=== PATIENT | male | born 1985 | race American Indian/Alaskan Native ===

== ENCOUNTER 2022-01-02 01:07 | Emergency (ER) | payer SELFPAY ==
[2022-01-02] MEDS ORDERED: SODIUM CHLORIDE 0.9% 1000 ML 1,000 ML IV ONE (01:15)
[2022-01-02] MEDS ORDERED: levETIRAcetam 1000 MG/NS 0.75% 1,000 MG/100 ML BAG IV ONE (01:15)
[2022-01-02 01:45] LABS: Bilirubin,Urine NEG (Negative); Blood,Urine SM (Negative); Color,Urine Straw (Yellow); Protein,Urine <15 mg/dL mg/dL (Negative); Urobilinogen,Urine < 2.0 mg/dL (<2.0)
[2022-01-02 01:52] LABS: Amphetamine Screen,Urine PRESUMPTIVE NEGATIVE; Benzodiazepines Screen,Urine PRESUMPTIVE NEGATIVE; Cannabinoid Screen,Urine PRESUMPTIVE NEGATIVE; Cocaine Screen,Urine PRESUMPTIVE NEGATIVE; Methadone Screen,Urine PRESUMPTIVE NEGATIVE; Opiate Screen,Urine PRESUMPTIVE NEGATIVE
[2022-01-02 01:55] LABS: Basophils % (Auto) 0.8 % (0.0-1.8); Eosinophils # (Auto) 0.4 K/mm3 (0.0-0.4); Eosinophils % (Auto) 7.2 % (0.0-4.3); Hematocrit 38.1 % (35.5-45.6); Hemoglobin 12.7 gm/dl (11.8-15.2); Lymphocytes # (Auto) 1.2 K/mm3 (1.2-5.4); Lymphocytes % (Auto) 22.9 % (13.4-35.0); Mean Corpuscular HGB Conc 33 % (32-34); Mean Corpuscular Volume 84 fl (84-94); Monocytes # (Auto) 0.4 K/mm3 (0.0-0.8); Monocytes % (Auto) 7.3 % (0.0-7.3); Platelet Count 272 K/mm3 (140-440); Red Blood Count 4.51 M/mm3 (3.65-5.03); Red Cell Distribution Width 14.7 % (13.2-15.2)
[2022-01-02 02:02] LABS: Alanine Aminotransferase 30 units/L (7-56); Albumin 4.3 g/dL (3.9-5); BUN/Creatinine Ratio 14; Blood Urea Nitrogen 11 mg/dL (9-20); Calcium 8.7 mg/dL (8.4-10.2); Hemolysis Index 9
[2022-01-02 02:27] VITALS: BP 110/69
--- NOTE | 2022-01-02 03:21 | Emergency Department Report ---
ED Seizure HPI - General Chief Complaint: Seizure Stated Complaint: SEIZURE Time Seen by Provider: 01/02/22 01:15 Source: patient, EMS Mode of arrival: Stretcher Limitations: No Limitations - History of Present Illness MD Complaint: seizure -: Sudden, hour(s) Description of Episode: loss of consciousness, tonic-clonic movement Seizure History: known seizure disorder, history of non-compliance Possible Precipitating Event: none Associated Symptoms: denies: denies other symptoms, chest pain, confusion, cough - Related Data Previous Rx's Medication Instructions Recorded Last Taken Type levETIRAcetam [Keppra TAB] 1,000 mg PO BID #60 tab 01/02/22 Unknown Rx Allergies Allergy/AdvReac Type Severity Reaction Status Date / Time No Known Allergies Allergy Verified 01/02/22 01:46 ED Review of Systems ROS: Stated complaint: SEIZURE Other details as noted in HPI Constitutional: denies: chills, fever Eyes: denies: eye pain, eye discharge, vision change ENT: denies: ear pain, throat pain Respiratory: denies: cough, shortness of breath, wheezing Cardiovascular: denies: chest pain, palpitations Endocrine: no symptoms reported Gastrointestinal: denies: abdominal pain, nausea, diarrhea Genitourinary: denies: urgency, dysuria Musculoskeletal: denies: back pain, joint swelling, arthralgia Skin: denies: rash, lesions Neurological: denies: headache, weakness, paresthesias Psychiatric: denies: anxiety, depression Hematological/Lymphatic: denies: easy bleeding, easy bruising ED Past Medical Hx - Past Medical History Previous Medical History?: No Hx Hypertension: No Hx Seizures: Yes - Medications Home Medications: Home Medications Medication Instructions Recorded Confirmed Last Taken Type levETIRAcetam [Keppra TAB] 1,000 mg PO BID #60 tab 01/02/22 Unknown Rx ED Physical Exam - General Limitations: No Limitations General appearance: alert, in no apparent distress - Head Head exam: Present: atraumatic, normocephalic - Eye Eye exam: Present: normal appearance - ENT ENT exam: Present: mucous membranes moist - Neck Neck exam: Present: normal inspection - Respiratory Respiratory exam: Present: normal lung sounds bilaterally. Absent: respiratory distress - Cardiovascular Cardiovascular Exam: Present: regular rate, normal rhythm. Absent: systolic murmur, diastolic murmur, rubs, gallop - GI/Abdominal GI/Abdominal exam: Present: soft, normal bowel sounds - Rectal Rectal exam: Present: deferred - Extremities Exam Extremities exam: Present: normal inspection - Back Exam Back exam: Present: normal inspection - Neurological Exam Neurological exam: Present: alert, oriented X3 - Psychiatric Psychiatric exam: Present: normal affect, normal mood - Skin Skin exam: Present: warm, dry, intact, normal color. Absent: rash ED Course Vital Signs 01/02/22 01/02/22 01/02/22 01:23 01:45 01:48 Temperature 98.1 F Pulse Rate 91 H Respiratory 18 Rate Blood Pressure Blood Pressure 118/63 [Right] O2 Sat by Pulse 99 99 100 Oximetry 01/02/22 01/02/22 02:01 02:15 Temperature Pulse Rate Respiratory Rate Blood Pressure 110/69 110/69 Blood Pressure [Right] O2 Sat by Pulse 99 96 Oximetry ED Medical Decision Making - Lab Data Result diagrams: 01/02/22 01:25 01/02/22 01:25 - Medical Decision Making work up neg , vss, awake and alert , refilled for keppra , loaded with keppra Critical care attestation.: If time is entered above; I have spent that time in minutes in the direct care of this critically ill patient, excluding procedure time. ED Disposition Clinical Impression: Seizure Disposition: 01 HOME / SELF CARE / HOMELESS Is pt being admited?: No Does the pt Need Aspirin: No Condition: Stable Instructions: Epilepsy
== END 2022-01-02 04:12 | disposition home or self-care (01) ==
LOC: ED 01:07
DX: G40.909 Epilepsy, unspecified, not intractable, without status epilepticus (principal)
CPT/HCPCS: 36415; 80053; 80307; 81001; 85025; 96374; 99284; J1953; J7030; 80320; G0480

== ENCOUNTER 2022-02-03 22:45 | Emergency (ER) | payer SELFPAY ==
[2022-02-04] MEDS ORDERED: levETIRAcetam 500 MG TAB PO ONE (08:29)
[2022-02-04 08:49] VITALS: BP 123/76
--- NOTE | 2022-02-04 08:50 | Emergency Department Report ---
ED Seizure HPI - General Chief Complaint: Seizure Stated Complaint: SEIZURE Source: patient Mode of arrival: Ambulatory Limitations: No Limitations - History of Present Illness Initial Comments: 36 y/o male present to Ed questing refill for seizure medication. Patient states that he is visiting from out of his Medication of Keppra. Patient states that he has a history of his seizure. He states that he currently has a Keppra at [facility] in [facility]. She states that he went to the pharmacy but due to them having to transfer the prescription from [place] was taking too long. Patient also states that the medication was going to cost him $88 due to the unable to take his insurance. patient states that he feared that he may have a seizure since he been out of the medication for 9 days. Patient denies any seizure activity. Patient is alert and oriented x3. No acute distress noted. No ill appearance noted. Patient states that he takes Keppra 1500 mg twice daily twice a day. - Related Data Previous Rx's Medication Instructions Recorded Last Taken Type levETIRAcetam [Keppra TAB] 1,000 mg PO BID #60 tab 01/02/22 Unknown Rx levETIRAcetam [Keppra TAB] 1,500 mg PO BID 30 Days #60 tablet 02/04/22 Unknown Rx Allergies Allergy/AdvReac Type Severity Reaction Status Date / Time No Known Allergies Allergy Verified 01/02/22 01:46 ED Review of Systems ROS: Stated complaint: SEIZURE Other details as noted in HPI Constitutional: denies: chills, fever Eyes: denies: eye pain, eye discharge, vision change ENT: denies: ear pain, throat pain Respiratory: denies: cough, shortness of breath, wheezing Cardiovascular: denies: chest pain, palpitations Endocrine: no symptoms reported Gastrointestinal: denies: abdominal pain, nausea, diarrhea Genitourinary: denies: urgency, dysuria Musculoskeletal: denies: back pain, joint swelling, arthralgia Skin: denies: rash, lesions Neurological: denies: headache, weakness, paresthesias Psychiatric: denies: anxiety, depression Hematological/Lymphatic: denies: easy bleeding, easy bruising ED Past Medical Hx - Past Medical History Hx Hypertension: No Hx Seizures: Yes - Medications Home Medications: Home Medications Medication Instructions Recorded Confirmed Last Taken Type levETIRAcetam [Keppra TAB] 1,000 mg PO BID #60 tab 01/02/22 Unknown Rx levETIRAcetam [Keppra TAB] 1,500 mg PO BID 30 Days #60 tablet 02/04/22 Unknown Rx ED Physical Exam - General Limitations: No Limitations General appearance: alert, in no apparent distress - Head Head exam: Present: atraumatic, normocephalic - Eye Eye exam: Present: normal appearance - ENT ENT exam: Present: mucous membranes moist - Neck Neck exam: Present: normal inspection - Respiratory Respiratory exam: Present: normal lung sounds bilaterally. Absent: respiratory distress - Cardiovascular Cardiovascular Exam: Present: regular rate, normal rhythm. Absent: systolic murmur, diastolic murmur, rubs, gallop - GI/Abdominal GI/Abdominal exam: Present: soft, normal bowel sounds - Rectal Rectal exam: Present: deferred - Extremities Exam Extremities exam: Present: normal inspection - Back Exam Back exam: Present: normal inspection - Neurological Exam Neurological exam: Present: alert, oriented X3 - Psychiatric Psychiatric exam: Present: normal affect, normal mood - Skin Skin exam: Present: warm, dry, intact, normal color. Absent: rash ED Course Vital Signs 02/03/22 23:31 Temperature 98.3 F Pulse Rate 78 Respiratory 18 Rate Blood Pressure 135/91 O2 Sat by Pulse 98 Oximetry ED Medical Decision Making - Medical Decision Making 36 y/o male present to Ed questing refill for seizure medication. Patient states that he is visiting from out of his Medication of Keppra. Patient states that he has a history of his seizure. He states that he currently has a Keppra at [facility] in [facility]. She states that he went to the pharmacy but due to them having to transfer the prescription from [place] was taking too long. Patient also states that the medication was going to cost him $88 due to the unable to take his insurance. patient states that he feared that he may have a seizure since he been out of the medication for 9 days. Patient denies any seizure activity. Patient is alert and oriented x3. No acute distress noted. No ill appearance noted. Patient states that he takes Keppra 1500 mg twice daily twice a day. Physical examination is unremarkable. Rechecked the patient is resting quietly quietly and comfortable and feeling better. I discussed the results of diagnostic study, my clinical impression and the plan for further treatment with the patient. Patient agrees with plan and discharge at this present time. All question addressed. I have given the patient instruction regarding a diagnosis ,expectation ,follow- up and return precaution. I explained to the patient that emergent condition may arise and to return to the ED for new worsen and any new persisting condition. I have explained the importance of following up with the primary care physician or referral physician listed below has instructed. The patient verbalized understanding of discharge instruction. Critical care attestation.: If time is entered above; I have spent that time in minutes in the direct care of this critically ill patient, excluding procedure time. ED Disposition Clinical Impression: Medication refill Disposition: 01 HOME / SELF CARE / HOMELESS Is pt being admited?: No Does the pt Need Aspirin: No Condition: Stable Instructions: Seizure, Adult Additional Instructions: Take medication as prescribed Return to the ED for any worsening symptom Prescriptions: levETIRAcetam [Keppra TAB] 1,500 mg PO BID 30 Days #60 tablet Referrals: [facility] [Provider Group] - 3-5 Days Forms: Work/School Release Form(ED) Time of Disposition: 08:53
== END 2022-02-04 09:20 | disposition home or self-care (01) ==
LOC: ED 22:45
DX: R56.9 Unspecified convulsions (principal); Z76.0 Encounter for issue of repeat prescription
CPT/HCPCS: 99282

== ENCOUNTER 2022-02-15 00:52 | Emergency (ER) | payer SELFPAY ==
[2022-02-15] MEDS ORDERED: levETIRAcetam 1000 MG/NS 0.75% 1,000 MG/100 ML BAG IV ONE (01:53)
--- NOTE | 2022-02-15 02:03 | Emergency Department Report ---
HPI - General Chief Complaint: Seizure Time Seen by Provider: 02/15/22 01:52 - [facility] HPI: Room 5 The patient is a 36-year-old male presenting with a chief complaint of seizure. Patient has a history of seizure disorder and states she has been out of his seizure medication for approximately 16 days. Patient had a generalized tonic- clonic seizure today and was sent to the ED. Patient states his last seizure before today occurred approximate 3 weeks ago. ED Past Medical Hx - Past Medical History Previous Medical History?: Yes Hx Seizures: Yes Additional medical history: Brain tumor - Surgical History Past Surgical History?: No Additional Surgical History: Craniotomy/plate in head - Family History Family history: no significant - Social History Smoking Status: Current Some Day Smoker Substance Use Type: None (Denies illicit drug use), Alcohol (Occasional) - Medications Home Medications: Home Medications Medication Instructions Recorded Confirmed Last Taken Type levETIRAcetam [Keppra TAB] 1,000 mg PO BID #60 tab 01/02/22 Unknown Rx levETIRAcetam [Keppra TAB] 1,500 mg PO BID 30 Days #60 tablet 02/04/22 Unknown Rx levETIRAcetam [Keppra TAB] 1,500 mg PO BID #120 tablet 02/15/22 Unknown Rx ED Review of Systems ROS: Stated complaint: SEIZURE Other details as noted in HPI Constitutional: no symptoms reported Eyes: denies: eye pain ENT: denies: throat pain Respiratory: no symptoms reported Cardiovascular: denies: chest pain Endocrine: no symptoms reported Gastrointestinal: denies: abdominal pain Genitourinary: denies: dysuria Musculoskeletal: denies: back pain Neurological: denies: headache Physical Exam - Physical Exam Vital Signs: Vital Signs 02/15/22 00:54 Temperature 98.2 F Pulse Rate 79 Respiratory 18 Rate Blood Pressure 149/114 O2 Sat by Pulse 97 Oximetry Physical Exam: GENERAL: The patient is well-developed well-nourished male lying on stretcher not appearing to be in acute distress. [] HEENT: Normocephalic. Atraumatic. Extraocular motions are intact. Patient has moist mucous membranes. NECK: Supple. No meningitic signs are noted. Trachea midline CHEST/LUNGS: Clear to auscultation. There is no respiratory distress noted. HEART/CARDIOVASCULAR: Regular. There is no tachycardia. There is no gallop rub or murmur. ABDOMEN: Abdomen is soft, nontender. Patient has normal bowel sounds. There is no abdominal distention. SKIN: There is no rash. There is no edema. There is no diaphoresis. NEURO: The patient is awake, alert, and oriented. The patient is cooperative. The patient has no focal neurologic deficits. The patient has normal speech. GCS 15. Cranial nerves II through XII grossly intact MUSCULOSKELETAL: There is no evidence of acute injury. ED Course Vital Signs 02/15/22 00:54 Temperature 98.2 F Pulse Rate 79 Respiratory 18 Rate Blood Pressure 149/114 O2 Sat by Pulse 97 Oximetry ED Medical Decision Making - Lab Data Result diagrams: 02/15/22 02:14 02/15/22 02:14 Laboratory Tests 02/15/22 02/15/22 02/15/22 02:14 02:14 02:14 WBC 4.8 RBC 5.40 H Hgb 14.5 Hct 44.9 MCV 83 L MCH 27 L MCHC 32 RDW 14.6 Plt Count 213 Lymph % (Auto) 48.7 H [place] % (Auto) 6.9 Eos % (Auto) 3.9 Baso % (Auto) 0.2 Lymph # (Auto) 2.3 [place] # (Auto) 0.3 Eos # (Auto) 0.2 Baso # (Auto) 0.0 Seg Neutrophils % 40.3 Seg Neutrophils # 1.9 Sodium 141 Potassium 4.0 Chloride 104.8 Carbon Dioxide 26 Anion Gap 14 BUN 7 L Creatinine 0.8 Estimated GFR > 60 BUN/Creatinine Ratio 9 Glucose 88 Calcium 9.0 Magnesium 2.40 H Plasma/Serum Alcohol 0.26 H - Differential Diagnosis Seizure Critical care attestation.: If time is entered above; I have spent that time in minutes in the direct care of this critically ill patient, excluding procedure time. ED Disposition Clinical Impression: Seizure, Medication refill Disposition: HOME / SELF CARE / HOMELESS Is pt being admited?: No Does the pt Need Aspirin: No Condition: Stable Instructions: Epilepsy, [id number] Additional Instructions: Return to the emergency department should you develop worsening symptoms, inability to tolerate food or liquids, high fever or any other concerns Prescriptions: levETIRAcetam [Keppra TAB] 1,500 mg PO BID #120 tablet Referrals: RUSSELL CAMARENA MD [Staff Physician] - 3-5 Days (Dr. Camarena is a neurologist. Please follow-up with him for further evaluation if you do not already have a neurologist)
[2022-02-15 03:30] LABS: Basophils % (Auto) 0.2 % (0.0-1.8); Eosinophils # (Auto) 0.2 K/mm3 (0.0-0.4); Eosinophils % (Auto) 3.9 % (0.0-4.3); Hematocrit 44.9 % (35.5-45.6); Hemoglobin 14.5 gm/dl (11.8-15.2); Lymphocytes # (Auto) 2.3 K/mm3 (1.2-5.4); Lymphocytes % (Auto) 48.7 % (13.4-35.0); Mean Corpuscular HGB Conc 32 % (32-34); Mean Corpuscular Volume 83 fl (84-94); Monocytes # (Auto) 0.3 K/mm3 (0.0-0.8); Monocytes % (Auto) 6.9 % (0.0-7.3); Platelet Count 213 K/mm3 (140-440); Red Cell Distribution Width 14.6 % (13.2-15.2)
[2022-02-15 03:40] LABS: BUN/Creatinine Ratio 9; Blood Urea Nitrogen 7 mg/dL (9-20); Hemolysis Index 12
[2022-02-15 15:07] VITALS: BP 120/74
== END 2022-02-15 15:15 | disposition home or self-care (01) ==
LOC: ED 00:52
DX: R56.9 Unspecified convulsions (principal); Z76.0 Encounter for issue of repeat prescription; Z98.890 Other specified postprocedural states; F17.290 Nicotine dependence, other tobacco product, uncomplicated; D49.6 Neoplasm of unspecified behavior of brain
CPT/HCPCS: 36415; 80048; 83735; 85025; 96365; 96366; 99284; J1953; 80320; G0480

== ENCOUNTER 2022-02-23 20:36 | Emergency (ER) | payer MEDICAID ==
[2022-02-23] MEDS ORDERED: levETIRAcetam 1000 MG/NS 0.75% 1,000 MG/100 ML BAG IV ONE (22:00)
[2022-02-23] MEDS ORDERED: AMOXICILLIN 500 MG CAP PO ONE (22:01)
[2022-02-23] MEDS ORDERED: HYDROcodone/ACETAMINOPHEN 5-325 MG TAB PO ONE (22:01)
--- NOTE | 2022-02-23 22:06 | Emergency Department Report ---
ED Seizure HPI - General Chief Complaint: Seizure Stated Complaint: ETOH Time Seen by Provider: 02/23/22 21:54 Source: EMS Mode of arrival: Stretcher Limitations: No Limitations - History of Present Illness Initial Comments: Patient is a 36-year-old male presenting to ED after having a seizure in his driveway this evening. States he takes Keppra 1500 twice daily however has been off of it for the past 23 days. Also complains of swelling and pain to the right jaw due to an infected tooth. - Related Data Previous Rx's Medication Instructions Recorded Last Taken Type levETIRAcetam [Keppra TAB] 1,000 mg PO BID #60 tab 01/02/22 Unknown Rx levETIRAcetam [Keppra TAB] 1,500 mg PO BID 30 Days #60 tablet 02/04/22 Unknown Rx levETIRAcetam [Keppra TAB] 1,500 mg PO BID #120 tablet 02/15/22 Unknown Rx Amoxicillin [Trimox CAP] 500 mg PO Q8H #21 capsule 02/24/22 Unknown Rx Ketorolac [Toradol] 10 mg PO Q6H PRN #20 02/24/22 Unknown Rx Allergies Allergy/AdvReac Type Severity Reaction Status Date / Time No Known Allergies Allergy Verified 01/02/22 01:46 ED Review of Systems ROS: Stated complaint: ETOH Other details as noted in HPI Constitutional: denies: chills, fever ENT: dental pain Respiratory: denies: cough, shortness of breath, wheezing Cardiovascular: denies: chest pain, palpitations Gastrointestinal: denies: abdominal pain, nausea, diarrhea Genitourinary: denies: urgency, dysuria Musculoskeletal: denies: back pain, joint swelling, arthralgia Skin: denies: rash, lesions Neurological: denies: headache, weakness, paresthesias Psychiatric: denies: anxiety, depression ED Past Medical Hx - Past Medical History Hx Seizures: Yes Additional medical history: Brain tumor - Surgical History Additional Surgical History: Craniotomy/plate in head - Social History Smoking Status: Current Some Day Smoker Substance Use Type: None (Denies illicit drug use), Alcohol (Occasional) - Medications Home Medications: Home Medications Medication Instructions Recorded Confirmed Last Taken Type levETIRAcetam [Keppra TAB] 1,000 mg PO BID #60 tab 01/02/22 Unknown Rx levETIRAcetam [Keppra TAB] 1,500 mg PO BID 30 Days #60 tablet 02/04/22 Unknown Rx levETIRAcetam [Keppra TAB] 1,500 mg PO BID #120 tablet 02/15/22 Unknown Rx Amoxicillin [Trimox CAP] 500 mg PO Q8H #21 capsule 02/24/22 Unknown Rx Ketorolac [Toradol] 10 mg PO Q6H PRN #20 02/24/22 Unknown Rx ED Physical Exam - General Limitations: No Limitations General appearance: postictal - Head Head exam: Present: atraumatic, normocephalic - Eye Eye exam: Present: PERRL, EOMI - ENT ENT exam: Present: other (Dental caries present. Swelling and tenderness to right jaw) - Neck Neck exam: Present: normal inspection. Absent: tenderness, lymphadenopathy - Respiratory Respiratory exam: Present: normal lung sounds bilaterally, respiratory distress - Cardiovascular Cardiovascular Exam: Present: regular rate, normal rhythm, normal heart sounds - GI/Abdominal GI/Abdominal exam: Present: soft. Absent: distended, tenderness - Neurological Exam Neurological exam: Present: oriented X3, other (Mildly postictal) - Psychiatric Psychiatric exam: Present: normal affect, normal mood - Skin Skin exam: Present: warm, dry, intact, normal color ED Course Vital Signs 02/23/22 02/23/22 02/23/22 21:54 22:01 22:16 Pulse Rate 81 83 80 Respiratory 14 13 22 Rate Blood Pressure 115/80 115/80 O2 Sat by Pulse 98 98 98 Oximetry 02/23/22 02/23/22 02/23/22 22:31 22:45 23:01 Pulse Rate 69 83 77 Respiratory 18 14 16 Rate Blood Pressure 115/80 116/80 O2 Sat by Pulse 96 100 99 Oximetry 02/23/22 02/23/22 02/23/22 23:15 23:27 23:31 Pulse Rate 68 71 74 Respiratory 17 22 20 Rate Blood Pressure 116/80 116/79 116/79 O2 Sat by Pulse 98 99 98 Oximetry 02/23/22 02/24/22 02/24/22 23:45 00:01 00:15 Pulse Rate 70 56 L 54 L Respiratory 18 17 16 Rate Blood Pressure 116/79 115/80 115/80 O2 Sat by Pulse 98 96 97 Oximetry 02/24/22 02/24/22 02/24/22 00:28 00:31 00:45 Pulse Rate 57 L 70 Respiratory 16 15 Rate Blood Pressure 113/77 113/77 O2 Sat by Pulse 98 99 98 Oximetry 02/24/22 02/24/22 02/24/22 01:01 01:15 01:31 Pulse Rate 97 H 79 72 Respiratory 17 19 18 Rate Blood Pressure 119/71 119/71 130/67 O2 Sat by Pulse 99 98 99 Oximetry 02/24/22 02/24/22 02/24/22 01:45 02:01 02:15 Pulse Rate 70 59 L 62 Respiratory 13 13 17 Rate Blood Pressure 130/67 127/92 127/92 O2 Sat by Pulse 98 97 96 Oximetry 02/24/22 02/24/22 02/24/22 02:31 02:45 03:01 Pulse Rate 56 L 55 L 53 L Respiratory 16 14 15 Rate Blood Pressure 126/94 126/94 124/57 O2 Sat by Pulse 97 100 99 Oximetry 02/24/22 02/24/22 02/24/22 03:15 03:31 03:45 Pulse Rate 53 L 67 54 L Respiratory 14 15 15 Rate Blood Pressure 124/57 112/52 112/52 O2 Sat by Pulse 98 91 89 Oximetry 02/24/22 02/24/22 04:01 04:15 Pulse Rate 58 L 61 Respiratory 15 16 Rate Blood Pressure 114/70 114/70 O2 Sat by Pulse 96 96 Oximetry ED Medical Decision Making - Medical Decision Making Patient presenting to after having a seizure likely related to noncompliance with medications. He was loaded with 1 g of Keppra in the emergency department. He was also given amoxicillin for likely dental infection. Patient has Keppra at home. Will discharge home with Rx for amoxicillin and instructions to follow- up with dentist as soon as possible. Critical care attestation.: If time is entered above; I have spent that time in minutes in the direct care of this critically ill patient, excluding procedure time. ED Disposition Clinical Impression: Seizure, Infected dental caries, Noncompliance with medication regimen Disposition: 01 HOME / SELF CARE / HOMELESS Is pt being admited?: No Condition: Stable Instructions: Dental Abscess, [id number], Seizure, Adult, [id number] Additional Instructions: It is important that you take your seizure medications to avoid recurrent seizures. Please follow-up with dentist of your choosing at your earliest convenience.
[2022-02-24 04:43] VITALS: BP 107/65
== END 2022-02-24 04:50 | disposition home or self-care (01) ==
LOC: ED 20:36
DX: R56.9 Unspecified convulsions (principal); K02.9 Dental caries, unspecified; Z91.14 Patient's other noncompliance with medication regimen; F17.200 Nicotine dependence, unspecified, uncomplicated
CPT/HCPCS: 96374; 99283; J1953

== ENCOUNTER 2022-02-24 12:43 | Emergency (ER) | payer SELFPAY ==
[2022-02-24 15:10] LABS: Hematocrit 40.3 % (35.5-45.6); Hemoglobin 13.4 gm/dl (11.8-15.2); Mean Corpuscular HGB Conc 33 % (32-34); Mean Corpuscular Volume 82 fl (84-94); Platelet Count 236 K/mm3 (140-440); Red Cell Distribution Width 14.9 % (13.2-15.2)
[2022-02-24 15:45] LABS: Alanine Aminotransferase 11 units/L (7-56); Albumin 4.3 g/dL (3.9-5); Blood Urea Nitrogen 6 mg/dL (9-20); Calcium 9.1 mg/dL (8.4-10.2); Hemolysis Index 6
[2022-02-24 15:47] LABS: BUN/Creatinine Ratio 9
--- NOTE | 2022-02-25 14:45 | Emergency Department Report ---
ED Seizure HPI - General Chief Complaint: Seizure Stated Complaint: PT STATES HE HAD A SEIZURE Source: patient, EMS Mode of arrival: Stretcher Limitations: No Limitations - History of Present Illness Initial Comments: 36-year-old male who reports history of seizure now presents with episode of seizure last night. Patient states that is of his seizure medicine the last months. Patient recently moved to [place] and does not have a primary doctor yet. Patient is requesting for seizure medication. Patient denies any fever or chills. Or any other modifying or associated factors. MD Complaint: seizure - Related Data Previous Rx's Medication Instructions Recorded Last Taken Type levETIRAcetam [Keppra TAB] 1,000 mg PO BID #60 tab 01/02/22 Unknown Rx levETIRAcetam [Keppra TAB] 1,500 mg PO BID #120 tablet 02/15/22 Unknown Rx Amoxicillin [Trimox CAP] 500 mg PO Q8H #21 capsule 02/24/22 Unknown Rx Ketorolac [Toradol] 10 mg PO Q6H PRN #20 02/24/22 Unknown Rx levETIRAcetam [Keppra TAB] 1,500 mg PO BID 30 Days #60 tablet 02/25/22 Unknown Rx Allergies Allergy/AdvReac Type Severity Reaction Status Date / Time No Known Allergies Allergy Verified 01/02/22 01:46 ED Review of Systems ROS: Stated complaint: PT STATES HE HAD A SEIZURE Other details as noted in HPI Comment: All other systems reviewed and negative Neurological: other (Seizure) ED Past Medical Hx - Past Medical History Previous Medical History?: Yes Hx Seizures: Yes Additional medical history: Brain tumor - Surgical History Past Surgical History?: Yes Additional Surgical History: Craniotomy/plate in head - Social History Smoking Status: Current Every Day Smoker Substance Use Type: None - Medications Home Medications: Home Medications Medication Instructions Recorded Confirmed Last Taken Type levETIRAcetam [Keppra TAB] 1,000 mg PO BID #60 tab 01/02/22 Unknown Rx levETIRAcetam [Keppra TAB] 1,500 mg PO BID #120 tablet 02/15/22 Unknown Rx Amoxicillin [Trimox CAP] 500 mg PO Q8H #21 capsule 02/24/22 Unknown Rx Ketorolac [Toradol] 10 mg PO Q6H PRN #20 02/24/22 Unknown Rx levETIRAcetam [Keppra TAB] 1,500 mg PO BID 30 Days #60 tablet 02/25/22 Unknown Rx ED Physical Exam - General Limitations: No Limitations General appearance: alert, in no apparent distress - Head Head exam: Present: atraumatic, normal inspection - Eye Eye exam: Present: normal appearance Pupils: Present: normal accommodation - ENT ENT exam: Present: normal exam, normal orophraynx, mucous membranes moist - Neck Neck exam: Present: normal inspection, full ROM. Absent: tenderness - Respiratory Respiratory exam: Present: normal lung sounds bilaterally. Absent: respiratory distress, accessory muscle use - Cardiovascular Cardiovascular Exam: Present: regular rate, normal rhythm, normal heart sounds - GI/Abdominal GI/Abdominal exam: Present: soft, normal bowel sounds. Absent: distended, tenderness - Extremities Exam Extremities exam: Present: normal inspection, normal capillary refill. Absent: tenderness, pedal edema - Back Exam Back exam: Absent: tenderness - Neurological Exam Neurological exam: Present: alert, oriented X3 - Psychiatric Psychiatric exam: Present: normal affect, normal mood - Skin Skin exam: Present: warm, normal color ED Course Vital Signs 02/24/22 02/25/22 02/25/22 12:43 09:41 09:44 Temperature 97.2 F L 97.9 F Pulse Rate 70 54 L Respiratory 18 16 16 Rate Blood Pressure 144/85 138/89 [Left] O2 Sat by Pulse 99 100 100 Oximetry - Reevaluation(s) Reevaluation #1: 02/25/22 14:43 Here with seizure--episode with history so we will go ahead and order routine labs and discharge patient home on Keppra with close follow-up with his primary doctor. Patient reassured ED Medical Decision Making - Lab Data Result diagrams: 02/24/22 14:30 02/24/22 14:30 Critical care attestation.: If time is entered above; I have spent that time in minutes in the direct care of this critically ill patient, excluding procedure time. ED Disposition Clinical Impression: Seizure Disposition: 01 HOME / SELF CARE / HOMELESS Is pt being admited?: No Does the pt Need Aspirin: No Condition: Stable Instructions: Seizure, Adult, [id number], Managing Non-Epileptic Seizures, Adult Additional Instructions: It is important that you take your seizure medicine as prescribed to prevent recurrent Increase your daily fluid to help your hydration Please call and schedule follow-up with your neurologist/primary doctor in the next 3 to 4 days for progress Please do not hesitate to call or return to emergency if your symptoms worsen Prescriptions: levETIRAcetam [Keppra TAB] 1,500 mg PO BID 30 Days #60 tablet Referrals: PRIMARY CARE, [Primary Care Provider] - 3-5 Days Time of Disposition: 14:45
[2022-02-25 15:06] VITALS: BP 116/75
== END 2022-02-25 15:13 | disposition home or self-care (01) ==
LOC: ED 12:43
DX: R56.9 Unspecified convulsions (principal); F17.200 Nicotine dependence, unspecified, uncomplicated
CPT/HCPCS: 36415; 80053; 82550; 85027; 99283